=== PATIENT | male | born 2000 | race African-American/Black ===

== ENCOUNTER 2024-11-29 22:37 | Emergency (ER) | payer BC, OTHER ==
[2024-11-30] MEDS ORDERED: Amoxicillin/Potassium Clav 875 MG TAB ONE (01:44)
[2024-11-30] MEDS ORDERED: Dexamethasone 10 MG/ML VIAL ONE (01:44)
== END 2024-11-30 02:03 | disposition home or self-care (01) ==
LOC: CSHERS 22:37
DX: J35.8 Other chronic diseases of tonsils and adenoids (principal); J02.9 Acute pharyngitis, unspecified; F17.290 Nicotine dependence, other tobacco product, uncomplicated
CPT/HCPCS: 87081; 87430; 99283; J1100